=== PATIENT | female | born 1955 | race Caucasian/White ===

== ENCOUNTER 2017-10-18 18:20 | Emergency (ER) | payer BC ==
[~2017-10-18] VITALS: Ht 177.8 cm; Wt 87.6 kg
[~2017-10-18 18:20] MED LIST: CALCIUM600 MG PO; CENTRAL VITE T1 EACH PO; DOXYCYCLINE HY100 MG PO; FLEXERIL10 MG PO; GLUCOSAMINE &1 EACH PO; HYDROCODONE; LORAZEPAM0.5 MG PO; MOBIC15 MG PO; PERCOCET 5/31 TABLET PO; PREDNISONE20 MG PO; PROMETHAZINE HC25 M1 PO; SYNTHROID100 MCG PO; TRAZODONE HCL50 MG PO
[2017-10-18] MEDS ORDERED: MOTRIN800 MG PO (21:53)
[2017-10-18] MEDS ORDERED: PERCOCET 5/31 TABLET PO (21:53)
[2017-10-18 22:50] VITALS: BP 137/97
== END 2017-10-18 22:50 | disposition home or self-care (01) ==
LOC: EME 18:20
PROC: 2W3DX1Z Immobilization of Left Lower Arm using Splint (ICD-10-PCS; principal; 2017-10-18)
DX: S52.502A Unspecified fracture of the lower end of left radius, initial encounter for closed fracture (principal); S90.31XA Contusion of right foot, initial encounter; S00.83XA Contusion of other part of head, initial encounter; W01.0XXA Fall on same level from slipping, tripping and stumbling without subsequent striking against object, initial encounter; Z87.891 Personal history of nicotine dependence; Z96.619 Presence of unspecified artificial shoulder joint; Z91.040 Latex allergy status; Z88.5 Allergy status to narcotic agent; Z88.1 Allergy status to other antibiotic agents; Z88.2 Allergy status to sulfonamides
CPT/HCPCS: 73110; 73630; 99281; 99284